=== PATIENT | female | born 1980 | race Two or more races ===

== ENCOUNTER → 2020-02-13 | Outpatient (CLI) | payer MEDICAID | END | disposition home or self-care (01) | LOC: LAB 11:04 | PROVIDERS: ATTEND Nurse Practitioner Family | DX: M25.562 Pain in left knee (principal); R60.0 Localized edema ==

== ENCOUNTER 2020-02-16 17:27 | Emergency (ER) | payer MEDICAID ==
[~2020-02-16] VITALS: Ht 160 cm; Wt 74.1 kg
[2020-02-16 19:48] VITALS: BP 110/71
== END 2020-02-16 18:39 | disposition home or self-care (01) ==
LOC: ED 18:38
DX: M06.862 Other specified rheumatoid arthritis, left knee (principal); G89.29 Other chronic pain; M25.562 Pain in left knee; M79.89 Other specified soft tissue disorders
CPT/HCPCS: 20610; 82945; 83615; 84157; 84560; 85810; 87070; 87205; 89050; 89060; 99283